=== PATIENT | female | born 2000 | race Caucasian/White ===

== ENCOUNTER 2021-05-22 08:51 | Emergency (ER) | payer OTHER ==
[2021-05-22 09:01] VITALS: BP 124/79; PULSE 75; TEMP 97.8; BMI 36.6
[2021-05-22] MEDS ORDERED: ACETAMINOPHEN 500 MG TABLET (FP) PO ONE (10:28)
[2021-05-22] MEDS ORDERED: ACETAMINOPHEN 500 MG TABLET (FP) ONE (10:41)
== END 2021-05-22 13:29 | disposition home or self-care (01) ==
LOC: JERFT 08:51 → JER 08:51 → JERFT 13:29
DX: S00.83XA Contusion of other part of head, initial encounter (principal); S09.90XA Unspecified injury of head, initial encounter; V49.40XA Driver injured in collision with unspecified motor vehicles in traffic accident, initial encounter
CPT/HCPCS: 70450-TC; 72125-TC; 99284-25